=== PATIENT | male | born 1995 | race American Indian/Alaskan Native ===

== ENCOUNTER 2018-07-26 21:45 | Emergency (ER) | payer SELFPAY ==
[2018-07-26] MEDS ORDERED: Insulin Regular, Human 100 Units/ML 3 ML Vial IV ONE (22:28)
--- NOTE | 2018-07-26 22:29 | EDM.PDOC ---
ED HPI GENERAL MEDICAL PROBLEM - General Chief Complaint: General Stated Complaint: HIGH BLOOD SUGAR [id number] Time Seen by Provider: 07/26/18 22:26 Source of Information: Reports: Patient History Limitations: Reports: No Limitations - History of Present Illness INITIAL COMMENTS - FREE TEXT/NARRATIVE: states been feeling nauseous which is usually due to BS hi-lo, check it to be > 400. states been taking his Rx except today since he went fishing. no other c/o - Related Data Allergies Allergy/AdvReac Type Severity Reaction Status Date / Time No Known Allergies Allergy Verified 07/26/18 22:02 Home Meds: Home Meds Lisinopril [Prinivil] 1 tab PO DAILY 07/26/18 [History] glipiZIDE [Glipizide ER] 1 tab PO BID 07/26/18 [History] metFORMIN HCl [Metformin HCl] 1 tab PO BID 07/26/18 [History] Past Medical History Cardiovascular History: Reports: Hypertension Endocrine/Metabolic History: Reports: Diabetes, Type II - Past Surgical History Endocrine Surgical History: Reports: None Social & Family History - Family History Family Medical History: Noncontributory - Tobacco Use Smoking Status *Q: Unknown Ever Smoked Second Hand Smoke Exposure: No - Caffeine Use Caffeine Use: Reports: Energy Drinks, Soda - Alcohol Use Days Per Week of Alcohol Use: 2 Number of Drinks Per Day: 4 Total Drinks Per Week: 8 - Recreational Drug Use Recreational Drug Use: No ED ROS GENERAL - Review of Systems Review Of Systems: ROS reveals no pertinent complaints other than HPI. ED EXAM, GENERAL - Physical Exam Exam: See Below Exam Limited By: No Limitations General Appearance: Alert, WD/WN, Anxious, Mild Distress Ears: Hearing Grossly Normal Throat/Mouth: Normal Voice, No Airway Compromise Head: Atraumatic Neck: Non-Tender, Full Range of Motion Respiratory/Chest: No Respiratory Distress Cardiovascular: Regular Rate, Rhythm GI/Abdominal: Soft, Non-Tender Neurological: Alert, Oriented, Normal Cognition, Normal Gait, No Motor/Sensory Deficits Psychiatric: Anxious Skin Exam: Warm, Dry, Normal Color Lymphatic: No Adenopathy Course - Vital Signs Last Recorded V/S: Last Vital Signs Temp 36.4 C 07/26/18 21:55 Pulse 106 H 07/26/18 21:55 Resp 15 07/26/18 21:55 BP 158/89 H 07/26/18 21:55 Pulse Ox 99 07/26/18 21:55 - Orders/Labs/Meds Orders: Active Orders 24 hr Category Date Time Status UA W/MICROSCOPIC [URIN] Stat Lab 07/26/18 22:37 Ordered Sodium Chloride 0.9% [Normal Saline] 1,000 ml Med 07/26/18 22:30 Active IV ASDIRECTED Medication Orders Sodium Chloride (Normal Saline) 1,000 mls @ 999 mls/hr IV ASDIRECTED JULISSA Stop: 07/30/18 22:28 Last Admin: 07/26/18 22:44 Dose: 999 mls/hr Labs: Laboratory Tests 07/26/18 07/26/18 07/26/18 Range/Units 21:52 22:33 22:33 WBC 7.6 (5.0-10.0) 10^3/uL RBC 4.86 (4.6-6.2) 10^6/uL Hgb 14.6 (14.0-18.0) g/dL Hct 41.5 (40.0-54.0) % MCV 85.4 (80-100) fL MCH 30.0 (27.0-34.0) pg MCHC 35.2 H (33.0-35.0) g/dL Plt Count 219 (150-450) 10^3/uL Neut % (Auto) 56.4 (42.2-75.2) % Lymph % (Auto) 36.5 (20.5-50.1) % [place] % (Auto) 5.4 (2-8) % Eos % (Auto) 1.2 (1.0-3.0) % Baso % (Auto) 0.5 (0.0-1.0) % Sodium 134 L (135-145) mmol/L Potassium 3.7 (3.6-5.0) mmol/L Chloride 97 L (101-111) mmol/L Carbon Dioxide 26.0 (21.0-31.0) mmol/L Anion Gap 14.7 BUN 18 (7-18) mg/dL Creatinine 1.0 (0.6-1.3) mg/dL Est Cr Clr Drug Dosing 136.14 mL/min Estimated GFR (MDRD) > 60 BUN/Creatinine Ratio 18.00 Glucose 484 H* (74-105) mg/dL POC Glucose 446 H* (70-105) mg/dl Calcium 9.0 (8.4-10.2) mg/dl Total Bilirubin 0.6 (0.2-1.0) mg/dL AST 31 (10-42) IU/L ALT 68 H (10-60) IU/L Alkaline Phosphatase 101 (42-121) IU/L Total Protein 6.9 (6.7-8.2) g/dl Albumin 4.3 (3.2-5.5) g/dl Globulin 2.6 Albumin/Globulin Ratio 1.65 Urine Color (YELLOW) Urine Appearance (CLEAR) Urine pH (5.0-9.0) Ur Specific [place] (1.005-1.030) Urine Protein (NEGATIVE) Urine Glucose (UA) (NEGATIVE) Urine Ketones (NEGATIVE) Urine Occult Blood (NEGATIVE) Urine Nitrite (NEGATIVE) Urine Bilirubin (NEGATIVE) Urine Urobilinogen (0.2-1.0) mg/dL Ur Leukocyte Esterase (NEGATIVE) Urine RBC /HPF Urine WBC (0-5/HPF) /HPF Ur Epithelial Cells /HPF Urine Bacteria (0-FEW/HPF) /HPF Urine Mucus /LPF Urine Opiates Screen (NEGATIVE) Ur Oxycodone Screen (NEGATIVE) Urine Methadone Screen (NEGATIVE) Ur Barbiturates Screen (NEGATIVE) U Tricyclic Antidepress (NEGATIVE) Ur Phencyclidine Scrn (NEGATIVE) Ur Amphetamine Screen (NEGATIVE) U Methamphetamines Scrn (NEGATIVE) Urine MDMA Screen (NEGATIVE) U Benzodiazepines Scrn (NEGATIVE) Urine Cocaine Screen (NEGATIVE) U Marijuana (THC) Screen (NEGATIVE) 07/26/18 07/26/18 07/26/18 Range/Units 22:37 22:37 23:36 WBC (5.0-10.0) 10^3/uL RBC (4.6-6.2) 10^6/uL Hgb (14.0-18.0) g/dL Hct (40.0-54.0) % MCV (80-100) fL MCH (27.0-34.0) pg MCHC (33.0-35.0) g/dL Plt Count (150-450) 10^3/uL Neut % (Auto) (42.2-75.2) % Lymph % (Auto) (20.5-50.1) % [place] % (Auto) (2-8) % Eos % (Auto) (1.0-3.0) % Baso % (Auto) (0.0-1.0) % Sodium (135-145) mmol/L Potassium (3.6-5.0) mmol/L Chloride (101-111) mmol/L Carbon Dioxide (21.0-31.0) mmol/L Anion Gap BUN (7-18) mg/dL Creatinine (0.6-1.3) mg/dL Est Cr Clr Drug Dosing mL/min Estimated GFR (MDRD) BUN/Creatinine Ratio Glucose (74-105) mg/dL POC Glucose 339 H (70-105) mg/dl Calcium (8.4-10.2) mg/dl Total Bilirubin (0.2-1.0) mg/dL AST (10-42) IU/L ALT (10-60) IU/L Alkaline Phosphatase (42-121) IU/L Total Protein (6.7-8.2) g/dl Albumin (3.2-5.5) g/dl Globulin Albumin/Globulin Ratio Urine Color Light yellow (YELLOW) Urine Appearance Clear (CLEAR) Urine pH 6.0 (5.0-9.0) Ur Specific [place] 1.010 (1.005-1.030) Urine Protein Negative (NEGATIVE) Urine Glucose (UA) >=1000 H (NEGATIVE) Urine Ketones Trace H (NEGATIVE) Urine Occult Blood Negative (NEGATIVE) Urine Nitrite Negative (NEGATIVE) Urine Bilirubin Negative (NEGATIVE) Urine Urobilinogen 0.2 (0.2-1.0) mg/dL Ur Leukocyte Esterase Negative (NEGATIVE) Urine RBC 0-5 /HPF Urine WBC 0-5 (0-5/HPF) /HPF Ur Epithelial Cells Rare /HPF Urine Bacteria Rare (0-FEW/HPF) /HPF Urine Mucus Rare /LPF Urine Opiates Screen Negative (NEGATIVE) Ur Oxycodone Screen Negative (NEGATIVE) Urine Methadone Screen Negative (NEGATIVE) Ur Barbiturates Screen Negative (NEGATIVE) U Tricyclic Antidepress Negative (NEGATIVE) Ur Phencyclidine Scrn Negative (NEGATIVE) Ur Amphetamine Screen Negative (NEGATIVE) U Methamphetamines Scrn Negative (NEGATIVE) Urine MDMA Screen Negative (NEGATIVE) U Benzodiazepines Scrn Negative (NEGATIVE) Urine Cocaine Screen Negative (NEGATIVE) U Marijuana (THC) Screen Negative (NEGATIVE) Meds: Medications Generic Name Dose Route Start Last Admin Trade Name Freq PRN Reason Stop Dose Admin Sodium Chloride 1,000 mls @ 999 mls/hr 07/26/18 22:30 07/26/18 22:44 Normal Saline IV 07/30/18 22:28 999 mls/hr ASDIRECTED JULISSA Administration Discontinued Medications Generic Name Dose Route Start Last Admin Trade Name Blanca PRN Reason Stop Dose Admin Insulin Human Regular 5 unit 07/26/18 22:28 07/26/18 22:44 Humulin R IV 07/26/18 22:29 5 units ONETIME ONE Administration - Re-Assessments/Exams Free Text/Narrative Re-Assessment/Exam: 07/27/18 00:26 results discussed with pt who is feeling fine wants to go home Departure - Departure Time of Disposition: 00:26 Disposition: Home, Self-Care 01 Condition: Good Clinical Impression: Hyperglycemia - Discharge Information Instructions: Hyperglycemia, [id number] Forms: ED Department Discharge Additional Instructions: 1) take your meds as directed 2) avoid sugary drinks 3) recheck as needed - My Orders Last 24 Hours: My Active Orders 07/26/18 22:30 Sodium Chloride 0.9% [Normal Saline] 1,000 ml IV ASDIRECTED 07/26/18 22:37 UA W/MICROSCOPIC [URIN] Stat - Assessment/Plan Last 24 Hours: My Active Orders 07/26/18 22:30 Sodium Chloride 0.9% [Normal Saline] 1,000 ml IV ASDIRECTED 07/26/18 22:37 UA W/MICROSCOPIC [URIN] Stat
[2018-07-26] MEDS ORDERED: Sodium Chloride 0.9% 1,000 ML IV SCH (22:30)
[2018-07-26 23:08] LABS: ANION GAP 14.7; CHLORIDE,CL 97 mmol/L (101-111); SODIUM,NA 134 mmol/L (135-145)
== END 2018-07-27 00:30 | disposition home or self-care (01) ==
LOC: EDBD → DL.ED 21:45
DX: E11.65 Type 2 diabetes mellitus with hyperglycemia (principal); I10 Essential (primary) hypertension; Z79.84 Long term (current) use of oral hypoglycemic drugs; Z79.899 Other long term (current) drug therapy
CPT/HCPCS: 36415; 80053; 80305; 81001; 82962; 85025; 96361; 96374; 99283; J1815; J7030